=== PATIENT | female | born 1985 | race Caucasian/White ===

== ENCOUNTER → 2016-06-12 | Outpatient (REF) | payer OTHER | LOC: M LAB REF 12:33 | PROVIDERS: ATTEND Physician Assistant | DX: J02.9 Acute pharyngitis, unspecified (principal) ==

== ENCOUNTER → 2016-08-20 | Outpatient (CLI) | payer OTHER ==
[2016-08-20 10:13] LABS: MEAN CORPUSCULAR HEMOGLOBIN 29.9 pg (27.0-33.0); MEAN CORPUSCULAR HGB CONC 33.2 g/dl (32.0-36.5); MEAN CORPUSCULAR VOLUME 89.9 fl (80.0-96.0); RED CELL DISTRIBUTION WIDTH 12.9 % (11.5-14.5); WHITE BLOOD COUNT 6.8 K/mm3 (4.0-10.0)
[2016-08-20 10:34] LABS: ALBUMIN 3.7 GM/DL (3.2-5.2); ALBUMIN/GLOBULIN RATIO 1.03 (1.00-1.93); ALKALINE PHOSPHATASE 71 U/L (45-117); ALT/SGPT 28 U/L (12-78); ANION GAP 6 MEQ/L (8-16); AST/SGOT 15 U/L (15-37); BILIRUBIN,TOTAL 0.6 MG/DL (0.2-1.0); BLOOD UREA NITROGEN 12 MG/DL (7-18); CALCIUM LEVEL 8.7 MG/DL (8.5-10.1); CARBON DIOXIDE LEVEL 28 MEQ/L (21-32); CHLORIDE LEVEL 108 MEQ/L (98-107); CHOLESTEROL LEVEL 235 MG/DL (<200); CREATININE FOR GFR 0.71 MG/DL (0.55-1.02); GLOMERULAR FILTRATION RATE > 60.0 (>60); GLUCOSE, FASTING 91 MG/DL (70-105); SODIUM LEVEL 142 MEQ/L (136-145); TOTAL PROTEIN 7.3 GM/DL (6.4-8.2); TRIGLYCERIDES LEVEL 110 MG/DL (<150)
== END ==
LOC: M WUC 08:14
PROVIDERS: ATTEND Family Medicine
DX: Z00.00 Encounter for general adult medical examination without abnormal findings (principal)

== ENCOUNTER → 2016-11-07 | Outpatient (CLI) | payer BC, OTHER ==
--- NOTE | 2016-11-10 10:24 | SLEEPCENT ---
DATE OF PROCEDURE: 11/07/2016 ORDERED BY: ANA PALUA Eastman Nocturnal polysomnography was performed for evaluation of sleep physiology in this patient with a history of excessive somnolence, nonrestorative sleep apnea, comorbidities of migraine cephalgia. 7 hours and 40 minutes of data were reviewed. Of these, 415 minutes of sleep were identified. Sleep latency was prolonged at 21 minutes. Rapid eye movement (REM) was prolonged at 104 minutes. Sleep architecture was fairly good with 3 REM periods. Overall sleep efficiency was 94%. The patient's EKG showed a sinus rhythm with an average heart rate of 70 beats per minute. EEG showed reasonably normal waveforms for awake and sleep stages. There were no focal events. There were 42 respiratory events identified of 10 seconds in duration or greater for an apnea hypopnea index of 6.1. The events were not exclusive to sleep stage but were seen only in the supine posture. Arousals from respiratory events occurred only 1.9 times per hour. Some oxygen desaturations were seen into the upper 80s. Limb activity was seen throughout the study. There were 3 trains of 30 events and limb movement arousal index was 9.7. Remaining measures of sleep physiology were normal. IMPRESSION: 1. Mild positional obstructive sleep apnea syndrome (G47.33). Apnea hypopnea index 6.1. 2. Periodic limb movement disorder (G47.61). Limb movement arousal index 9.7. RECOMMENDATION: Sleep position retraining for avoidance of the supine posture may be sufficient to address the patient's respiratory events. If sleep symptoms persist despite sleep position retraining, return to the sleep disorder center for pressure therapy would be indicated. Limb activity appears disruptive and interventions to reduce the frequency arousal from limb activity may also be helpful.
== END ==
LOC: M SLEEP 20:00
PROVIDERS: ATTEND Nurse Practitioner Adult Health
DX: G47.33 Obstructive sleep apnea (adult) (pediatric) (principal); G47.61 Periodic limb movement disorder

== ENCOUNTER → 2017-11-11 | Outpatient (CLI) | payer BC, OTHER | LOC: M WUC 14:19 | DX: R05 Cough (principal) | CPT/HCPCS: 71046 ==

== ENCOUNTER → 2020-10-24 | Outpatient (REF) | payer BC, OTHER ==
[2020-10-24 18:39] LABS: FREE T4 0.95 NG/DL (0.76-1.46); THYROID STIMULATING HORMONE 0.849 uIU/ML (0.358-3.740)
[2020-10-24 18:43] LABS: FOLLICLE STIMULATING HORMONE 4.6 mIU/mL
== END ==
LOC: M LAB REF 17:06
PROVIDERS: ATTEND Obstetrics & Gynecology
DX: N92.1 Excessive and frequent menstruation with irregular cycle (principal)

== ENCOUNTER → 2020-12-20 | Outpatient (CLI) | payer BC, OTHER ==
[~2020-12-20] MED LIST: PHEN-239 PO; ZYRTTAB8 PO
== END ==
LOC: M LABSMTC 09:27
PROVIDERS: ATTEND Anesthesiology
DX: Z01.812 Encounter for preprocedural laboratory examination (principal); Z20.822 Contact with and (suspected) exposure to COVID-19

== ENCOUNTER 2020-12-25 07:30 | Day surgery (SDC) | payer BC, OTHER ==
[~2020-12-25] VITALS: Ht 170.2 cm; Wt 97.3 kg
[~2020-12-25 07:30] MED LIST changes: +LIDOCAINE 1% MDV 20ML VIAL SQ PRN; +LR 1,000 ML IV ONE
--- OUTSIDE RECORDS SUMMARY | 2020-12-25 07:33 | CCD | Continuity of Care Document ---
Author Author Anais HORNE Organization Unknown [place] [address] Phone [phone] Care Team Providers Care Carousel Operator Name Role Phone June Cantor D.O. AUTM [facility] - [facility] AUTM [phone] Dante Lutz MD AUTM [phone] Problems Active Problems Provider Date Allergic rhinitis ANA PAULA Diggs Onset: 10/06/2019 Social History Type Date Description Comments Sex Unknown ETOH Use Occasionally consumes alcohol Recreational Drug Use Denies Drug Use Tobacco Use Start: Unknown End: Unknown Patient is a former smoker Smoking Status Reviewed: 10/06/19 Patient is a former smoker Exercise Type/Frequency Exercises regularly Sun Exposure Uses sunscreen Seat Belt/Car Seat Always uses seat belt Allergies, Adverse Reactions, Alerts Active Allergies Criticality Reaction | Severity Comments Date Cefotaxime Unable to assess criticality 10/03/2019 Morphine Unable to assess criticality 10/03/2019 Medications Active Medications SIG Qnty Indications Ordering Provide r Date Zyrtec Allergy 10mg Tablets 1 by mouth every night 90tabs J30.9 June Cantor D.O. 08/13 Flonase Allergy Relief 50mcg/Act Suspension two sprays in each nostril once daily 18.200ml J30.9 June Cantor D.O. 08/13/2020 Plexion Cleanser 9.8-4.8% Liquid apply to face, neck and chest once a day to affected area of acne 855gm L71 .8 June Cantor D.O. 06/12/2020 Phentermine HCL 37.5mg Capsules take one capsule by mouth daily before first meal of day 30caps E66.9 June Flores D.O. 06/12/[address] 1 by mouth every day 90caps Eva TrimbleO. 02/01 Multivitamin Adult Tablets 1 by mouth every day Unknown Immunizations Description No Information Available Vital Signs Date Vital Result Comment 11/15/2020 2:01pm BP Systolic 126 mmHg BP Diastolic 76 mmHg Height 68 inches 5'8" Weight 219.00 lb BMI (Body Mass Index) 33.3 kg/m2 Heart Rate 98 /min Respiratory Rate 18 /min Body Temperature 97.8 F O2 % BldC Oximetry 97 % [place] Body Weight 140 lb 10/17/2020 11:15am BP Systolic 132 mmHg BP Diastolic 82 mmHg Height 68 inches 5'8" Weight 223.00 lb BMI (Body Mass Index) 33.9 kg/m2 Heart Rate 97 /min Respiratory Rate 18 /min Body Temperature 98.3 F O2 % BldC Oximetry 98 % [place] Body Weight 140 lb Results Description No Information Available Procedures Date Code Description Status 10/17/2020 26273 Office/Outpatient Established Lo w MDM 20-29 Min Completed 08/13/2020 99584 Preventive Visit Est 18-39 Yrs C ompleted 06/12/2020 85276 Office/Outpatient Established Lo w MDM 20-29 Min Completed Medical Devices Description No Information Available Encounters Type Date Location Provider Dx Diagnosis Office Visit 10/17/2020 11:20a Family Medicine [facility] ANA PAULA Tang E66.9 Obesity, unspecified J30.9 Allergic rhinitis, unspecifi ed K21.9 Gastro-esophageal reflux dis ease without esophagitis Z68.33 Body mass index [BMI] 33.0-3 3.9, adult Office Visit 08/13/2020 3:30p Family [facility] ANA PAULA Tang Z00.00 Encntr for general adult med ical exam w/o abnormal findings E66.9 Obesity, unspecified J30.9 Allergic rhinitis, unspecifi ed K21.9 Gastro-esophageal reflux dis ease without esophagitis Z68.32 Body mass index [BMI] 32.0-3 2.9, adult Office Visit 06/12/2020 10:20a [facility] Medicine [facility] ANA PAULA Rodriguez L71.8 Other rosacea E66.9 Obesity, unspecified Z68.33 Body mass index [BMI] 33.0-3 3.9, adult Assessments Date Code Description Provider 11/15/2020 E66.9 Obesity, unspecified Jh tirado, PA 11/15/2020 J30.9 Allergic rhinitis, unspecified Nghia Horne, PA 11/15/2020 K21.9 Gastro-esophageal reflux disease without esophagitis ANA PAULA Rodriguez 11/15/2020 Z68.33 Body mass index [BMI] 33.0-33.9, adult ANAP AULA Rodriguez 10/17/2020 E66.9 Obesity, unspecified Jh tirado, PA 10/17/2020 J30.9 Allergic rhinitis, unspecified Nghia Horne, ANA PAULA 10/17/2020 K21.9 Gastro-esophageal reflux disease without esophagitis ANA PAULA Rodriguez 10/17/2020 Z68.33 Body mass index [BMI] 33.0-33.9, adult ANA PAULA Rodriguez 08/13/2020 Z00.00 Encounter for genera l adult medical examination without abnormal findings ANA PAULA Rodriguez 08/13/2020 E66.9 Obesity, unspecified ANA PAULA Brown 08/13/2020 J30.9 Allergic rhinitis, unspecified ANA PAULA Adkins 08/13/2020 K21.9 Gastro-esophageal reflux disease without esophagitis ANA PAULA Rodriguez 08/13/2020 Z68.32 Body mass index [BMI] 32.0-32.9, adult ANA PAULA Rodriguez 06/12/2020 L71.8 Other rosacea ANA PAULA Rodriguez 06/12/2020 E66.9 Obesity, unspecified Jh tirado, PA 06/12/2020 Z68.33 Body mass index [BMI] 33.0-33.9, adult ANA PAULA Rodriguez Plan of Treatment Future Appointment(s):* 12/18/2020 2:30 pm - ANA PAULA Rodriguez at [facility] 11/15/2020 - ANA PAULA Rodriguez* E66.9 Obesity, unspecified* Comments:* Continue with Phentermine to help * Follow up:* 1 month * J30.9 Allergic rhinitis, unspecified* Comments:* Try Flonase and Zyrtec for allergies and Zyrtec D (without use of Phentermine) to help with allergies * K21.9 Gastro-esophageal reflux disease without esophagitis* Comments:* Well controlled with Omeprazole. * Z68.33 Body mass index [BMI] 33.0-33.9, adult Functional Status Description No Information Available Mental Status Description No Information Available Referrals Refer to Reason for Referral Status Appt Date Dante Lutz MD Anais has a history of inf lamed facial tissue. She has a good facial hygiene routine but still has an excessive oily skin with occasional pimples. She would like further care with a spark plug tester. She was previously going to [place] for skin care. Sent 11/27/2020 [address] [facility] [address] [place] [address] [id number] [phone]
--- OUTSIDE RECORDS SUMMARY | 2020-12-25 07:33 | CCD | Continuity of Care Document ---
Author Author Anais HORNE Organization [place] [address] Phone [phone] Care Team Providers Care Color Dipper Name Role Phone June Cantor D.O. AUTM [phone] [facility] - Family Medicine AUTM [phone] Dante Lutz MD AUTM [phone] Problems Active Problems Provider Date Allergic rhinitis [...] F O2 % BldC Oximetry 97 % [place] Body Weight 140 lb 10/17/2020 11:15am BP Systolic 132 mmHg BP Diastolic 82 mmHg Height 68 inches 5'8" Weight 223.00 lb BMI (Body Mass Index) 33.9 kg/m2 Heart Rate 97 /min Respiratory Rate 18 /min Body Temperature 98.3 F O2 % BldC Oximetry 98 % [place] Body Weight 140 lb Results Description No Information Available Procedures Date Code Description Status 11/15/2020 86181 Office/Outpatient Established Lo w MDM 20-29 Min Completed 10/17/2020 09186 Office/Outpatient Established Lo w MDM 20-29 Min Completed 08/13/2020 26229 Preventive Visit Est 18-39 Yrs C ompleted 06/12/2020 11128 Office/Outpatient Established Lo w MDM 20-29 Min Completed Medical Devices Description No Information Available Encounters Type Date Location Provider Dx Diagnosis Office Visit 11/15/2020 2:00p [facility] ANA PAULA Rodriguez E66.9 Obesity, unspecified J30.9 Allergic rhinitis, unspecifi ed K21.9 Gastro-esophageal reflux dis ease without esophagitis Z68.33 Body mass index [BMI] 33.0-3 3.9, adult Office Visit 10/17/2020 11:20a [facility] ANA PAULA Tang E66.9 Obesity, unspecified J30.9 Allergic rhinitis, unspecifi ed K21.9 Gastro-esophageal reflux dis ease without esophagitis Z68.33 Body mass index [BMI] 33.0-3 3.9, adult Office Visit 08/13/2020 3:30p [facility] ANA PAULA Rodriguez Z00.00 Encntr for general adult med ical exam w/o abnormal findings E66.9 Obesity, unspecified J30.9 Allergic rhinitis, unspecifi ed K21.9 Gastro-esophageal reflux dis ease without esophagitis Z68.32 Body mass index [BMI] 32.0-3 2.9, adult Office Visit 06/12/2020 10:20a [facility] ANA PAULA Rodriguez L71.8 Other rosacea E66.9 Obesity, unspecified Z68.33 Body mass index [BMI] 33.0-3 3.9, adult Assessments Date Code Description Provider 11/15/2020 E66.9 Obesity, unspecified Jh tirado, PA 11/15/2020 J30.9 Allergic rhinitis, unspecified Nghia Horne, PA 11/15/2020 K21.9 Gastro-esophageal reflux disease without esophagitis ANA PAULA Rodriguez 11/15/2020 Z68.33 Body mass index [BMI] 33.0-33.9, adult ANA PAULA Rodriguez 10/17/2020 E66.9 Obesity, unspecified Jh tirado, PA 10/17/2020 J30.9 Allergic rhinitis, unspecified Nghia Horne, PA 10/17/2020 K21.9 Gastro-esophageal reflux disease without esophagitis ANA PAULA Rodriguez 10/17/2020 Z68.33 Body mass index [BMI] 33.0-33.9, adult ANA PAULA Rodriguez 08/13/2020 Z00.00 Encounter for genera l adult medical examination without abnormal findings ANA PAULA Rodriguez 08/13/2020 E66.9 Obesity, unspecified Jh tirado, PA 08/13/2020 J30.9 Allergic rhinitis, unspecified Nghia Horne, PA 08/13/2020 K21.9 Gastro-esophageal reflux disease without esophagitis ANA PAULA Rodriguez 08/13/2020 Z68.32 Body mass index [BMI] 32.0-32.9, adult ANA PAULA Rodriguez 06/12/2020 L71.8 Other rosacea ANA PAULA Rodriguez 06/12/2020 E66.9 Obesity, unspecified ANA PAULA Brown 06/12/2020 Z68.33 Body mass index [BMI] 33.0-33.9, adult ANA PAULA Rodriguez Plan of Treatment Future Appointment(s):* 12/18/2020 2:30 pm - ANA PAULA Rodriguez at [facility] Functional Status Description No Information Available Mental Status Description No Information Available Referrals Refer to Dr Reason for Referral Status Appt Date 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 She has a good facial hygiene routine but still has an excessive oily skin with occasional pimples. She would like further care with a correctional treatment specialist. She was previously going to [place] for skin care. Sent 11/27/2020 [address] [facility] [address] [place] [address] [phone]
--- OUTSIDE RECORDS SUMMARY | 2020-12-25 07:33 | CCD | Continuity of Care Document ---
Author Author Anais JESUS SC Organization Unknown Address [address] [place] [address] Phone [phone] Care Team Providers Care Tax Record Clerk Name Role Phone Oscar Brown MD AUTM [phone] Problems Active Problems Provider Date Dehydration Tan Sims PKennedy Onset: 04/30/2011 Acute sinusitis Erlin Mann Onset: 2 Social History Type Date Description Comments Sex Unknown ETOH Use Rarely consumes alcohol Tobacco Use Start: Unknown End: Unknown Patient is a former smoker quit '03 hx: 1y Allergies, Adverse Reactions, Alerts Active Allergies Criticality Reaction | Severity Comments Date Cefotaxime Unable to assess criticality RASH 12/15/2010 Inactive Allergies NKDA Unable to assess criticality 11/02/2007 Medications Active Medications SIG Qnty Indications Ordering Provide r Date Proair HFA 108(90Base) mcg/Act Aer osol 2 puff every 4 hours as needed sob/wheezing 1units J20.9 Barron Kilgore JR., M.D. 11/02/2017 Zyrtec 10mg Tablets 1 po qd 30tabs Unknown Zantac 150mg Tablets every ni ght Unknown Mvi Unknown Immunizations Description No Information Available Vital Signs Date Vital Result Comment 08/11/2018 3:37pm BP Systolic 130 mmHg BP Diastolic 85 mmHg Heart Rate 78 /min Respiratory Rate 22 /min O2 % BldC Oximetry 99 % Body Temperature 97.9 F Weight 200.00 lb Height 67 inches 5'7" BMI (Body Mass Index) 31.3 kg/m2 Pain Level 3 02/21/2018 10:30am BP Systolic 128 mmHg BP Diastolic 93 mmHg Heart Rate 81 /min O2 % BldC Oximetry 97 % Body Temperature 97.4 F Weight 220.00 lb Height 67 inches 5'7" BMI (Body Mass Index) 34.5 kg/m2 Pain Level 4 Results Description No Information Available Procedures Description No Information Available Medical Devices Description No Information Available Encounters Description No Information Available Assessments Date Code Description Provider 10/29/2020 Z20.828 Contact with and (barroso spected) exposure to other viral communicable diseases ANA PAULA Torrez Plan of Treatment No Information Available Functional Status Description No Information Available Mental Status Description No Information Available Referrals Description No Information Available
--- OUTSIDE RECORDS SUMMARY | 2020-12-25 07:34 | CCD | Continuity of Care Document ---
Author Author Anais JESUS MT Organization Unknown Address [address] [place] [id number] Phone [phone] Care Team Providers Care Monotype Keyboard Operator Name Role Phone Oscar Brown MD AUTM [phone] Problems Active Problems Provider Date Dehydration Tan [...]
--- OUTSIDE RECORDS SUMMARY | 2020-12-25 07:34 | CCD ---
Author Author [facility] Organization [facility] Address Unknown Phone Unavailable Care Team Providers Care Legal Executive Assistant Name Role Phone MARY-JOAQUÍN, AMANDA DO Unavailable Unavailable MARY-JOAQUÍN, AMANDA DO Unavailable Unavailable MARY-JOAQUÍN, AMANDA DO Unavailable Unavailable MARY-JOAQUÍN, AMANDA DO Unavailable Unavailable MARY-JOAQUÍN, AMANDA DO Unavailable Unavailable MARY-JOAQUÍN, AMANDA DO Unavailable Unavailable MARY-JOAQUÍN, AMANDA DO Unavailable Unavailable MARY-JOAQUÍN, AMANDA DO Unavailable Unavailable MARY-JOAQUÍN, AMANDA DO Unavailable Unavailable MARY-JOAQUÍN, AMANDA DO Unavailable Unavailable MARY-JOAQUÍN, AMANDA DO Unavailable Unavailable MARY-JOAQUÍN, AMANDA DO Unavailable Unavailable MARY-JOAQUÍN, AMANDA DO Unavailable Unavailable MARY-JOAQUÍN, AMANDA DO Unavailable Unavailable MARY-JOAQUÍN, AMANDA DO Unavailable Unavailable MARY-JOAQUÍN, AMANDA DO Unavailable Unavailable MARY-JOAQUÍN, AMANDA DO Unavailable Unavailable MARY-JOAQUÍN, AMANDA DO Unavailable Unavailable MARY-JOAQUÍN, AMANDA DO Unavailable Unavailable MARY-JOAQUÍN, AMANDA DO Unavailable Unavailable MARY-JOAQUÍN, AMANDA DO Unavailable Unavailable MARY-JOAQUÍN, AMANDA DO Unavailable Unavailable MARY-JOAQUÍN, AMANDA DO Unavailable Unavailable MARY-JOAQUÍN, AMANDA DO Unavailable Unavailable MARY-JOAQUÍN, AMANDA DO Unavailable Unavailable MARY-JOAQUÍN, AMANDA DO Unavailable Unavailable MARY-JOAQUÍN, AMANDA DO Unavailable Unavailable MARY-JOAQUÍN, AMANDA DO Unavailable Unavailable MARY-JOAQUÍN, AMANDA DO Unavailable Unavailable MARY-JOAQUÍN, AMANDA DO Unavailable Unavailable MARY-JOAQUÍN, AMANDA DO Unavailable Unavailable MARY-JOAQUÍN, AMANDA DO Unavailable Unavailable MARY-JOAQUÍN, AMANDA DO Unavailable Unavailable MARY-JOAQUÍN, AMANDA DO Unavailable Unavailable MARY-JOAQUÍN, AMANDA DO Unavailable Unavailable MARY-JOAQUÍN, AMANDA DO Unavailable Unavailable MARY-JOAQUÍN, AMANDA DO Unavailable Unavailable MARY-JOAQUÍN, AMANDA DO Unavailable Unavailable MARY-JOAQUÍN, AMANDA DO Unavailable Unavailable MARY-JOAQUÍN, AMANDA DO Unavailable Unavailable MARY-JOAQUÍN, AMANDA DO Unavailable Unavailable MARY-JOAQUÍN, AMANDA DO Unavailable Unavailable MARY-JOAQUÍN, AMANDA DO Unavailable Unavailable MARY-JOAQUÍN, AMANDA DO Unavailable Unavailable MARY-JOAQUÍN, AMANDA DO Unavailable Unavailable MARY-JOAQUÍN, AMANDA DO Unavailable Unavailable MARY-JOAQUÍN, AMANDA DO Unavailable Unavailable MARY-JOAQUÍN, AMANDA DO Unavailable Unavailable MARY-JOAQUÍN, AMANDA DO Unavailable Unavailable MARY-JOAQUÍN, AMANDA DO Unavailable Unavailable MARY-JOAQUÍN, AMANDA DO Unavailable Unavailable MARY-JOAQUÍN, AMANDA DO Unavailable Unavailable MARY-JOAQUÍN, AMANDA DO Unavailable Unavailable MARY-JOAQUÍN, AMANDA DO Unavailable Unavailable MARY-JOAQUÍN, AMANDA DO Unavailable Unavailable MARY-JOAQUÍN, AMANDA DO Unavailable Unavailable MARY-JOAQUÍN, AMANDA DO Unavailable Unavailable MARY-JOAQUÍN, AMANDA DO Unavailable Unavailable MARY-JOAQUÍN, AMANDA DO Unavailable Unavailable MARY-JOAQUÍN, AMANDA DO Unavailable Unavailable MARY-JOAQUÍN, AMANDA DO Unavailable Unavailable MARY-JOAQUÍN, AMANDA DO Unavailable Unavailable MARY-JOAQUÍN, AMANDA DO Unavailable Unavailable MARY-JOAQUÍN, AMANDA DO Unavailable Unavailable MARY-JOAQUÍN, AMANDA DO Unavailable Unavailable MARY-JOAQUÍN, AMANDA DO Unavailable Unavailable MARY-JOAQUÍN, AMANDA DO Unavailable Unavailable MARY-JOAQUÍN, AMANDA DO Unavailable Unavailable MARY-JOAQUÍN, AMANDA DO Unavailable Unavailable MARY-JOAQUÍN, AMANDA DO Unavailable Unavailable MARY-JOAQUÍN, AMANDA DO Unavailable Unavailable MARY-JOAQUÍN, AMANDA DO Unavailable Unavailable MARY-JOAQUÍN, AMANDA DO Unavailable Unavailable MARY-JOAQUÍN, AMANDA DO Unavailable Unavailable MARY-JOAQUÍN, AMANDA DO Unavailable Unavailable MARY-JOAQUÍN, AMANDA DO Unavailable Unavailable MARY-JOAQUÍN, AMANDA DO Unavailable Unavailable MARY-JOAQUÍN, AMANDA DO Unavailable Unavailable MARY-JOAQUÍN, AMANDA DO Unavailable Unavailable MARY-JOAQUÍN, AMANDA DO Unavailable Unavailable MARY-JOAQUÍN, AMANDA DO Unavailable Unavailable MARY-JOAQUÍN, AMANDA DO Unavailable Unavailable MARY-JOAQUÍN, AMANDA DO Unavailable Unavailable MARY-JOAQUÍN, AMANDA DO Unavailable Unavailable Lucia, Clive PA Unavailable Unavailable Lucia, Clive PA Unavailable Unavailable Lucia, Clive PA Unavailable Unavailable Lucia, Clive PA Unavailable Unavailable Lucia, Clive PA Unavailable Unavailable Lucia, Clive PA Unavailable Unavailable Lucia, Clive PA Unavailable Unavailable Lucia, Clive PA Unavailable Unavailable Lucia, Clive PA Unavailable Unavailable Lucia, Clive PA Unavailable Unavailable Lucia, Clive PA Unavailable Unavailable Lucia, Clive PA Unavailable Unavailable Lucia, Clive PA Unavailable Unavailable Lucia, Clive PA Unavailable Unavailable Lucia, Clive PA Unavailable Unavailable Lucia, Clive PA Unavailable Unavailable Lucia, Clive PA Unavailable Unavailable Lucia, Clive PA Unavailable Unavailable Lucia, Clive PA Unavailable Unavailable Lucia, Clive PA Unavailable Unavailable Lucia, Clive PA Unavailable Unavailable Lucia, Clive PA Unavailable Unavailable Lucia, Clive PA Unavailable Unavailable Lucia, Clive PA Unavailable Unavailable Lucia, Clive PA Unavailable Unavailable Lucia, Clive PA Unavailable Unavailable Lucia, Clive PA Unavailable Unavailable Lucia, Clive PA Unavailable Unavailable Lucia, Clive PA Unavailable Unavailable Lucia, Clive PA Unavailable Unavailable Lucia, Clive PA Unavailable Unavailable Lucia, Clive PA Unavailable Unavailable Lucia, Clive PA Unavailable Unavailable Lucia, Clive PA Unavailable Unavailable Lucia, Clive PA Unavailable Unavailable Lucia, Clive PA Unavailable Unavailable Lucia, Clive PA Unavailable Unavailable Lucia, Clive PA Unavailable Unavailable Lucia, Clive PA Unavailable Unavailable Lucia, Clive PA Unavailable Unavailable Lucia, Clive PA Unavailable Unavailable Lucia, Clive PA Unavailable Unavailable Lucia, Clive PA Unavailable Unavailable Lucia, Clive PA Unavailable Unavailable Lucia, Clive PA Unavailable Unavailable Lucia, Clive PA Unavailable Unavailable Lucia, Clive PA Unavailable Unavailable Lucia, Clive PA Unavailable Unavailable Lucia, Clive PA Unavailable Unavailable Lucia, Clive PA Unavailable Unavailable Lucia, Clive PA Unavailable Unavailable Lucia, Clive PA Unavailable Unavailable Lucia, Clive PA Unavailable Unavailable Lucia, Clive PA Unavailable Unavailable O'yeni, A Jh PA Unavailable Unavailable O'yeni, A Jh PA Unavailable Unavailable O'yeni, A Jh PA Unavailable Unavailable O'yeni, A Jh PA Unavailable Unavailable O'yeni, A Jh PA Unavailable Unavailable O'yeni, A Jh PA Unavailable Unavailable O'yeni, A Jh PA Unavailable Unavailable O'yeni, A Jh PA Unavailable Unavailable O'yeni, A Jh PA Unavailable Unavailable O'yeni, A Jh PA Unavailable Unavailable O'yeni, A Jh PA Unavailable Unavailable O'yeni, A Jh PA Unavailable Unavailable O'yeni, A Jh PA Unavailable Unavailable O'yeni, A Jh PA Unavailable Unavailable O'yeni, A Jh PA Unavailable Unavailable O'yeni, A Jh PA Unavailable Unavailable O'yeni, A Jh PA Unavailable Unavailable O'yeni, A Jh PA Unavailable Unavailable O'yeni, A Jh PA Unavailable Unavailable O'yeni, A Jh PA Unavailable Unavailable O'yeni, A Jh PA Unavailable Unavailable O'yeni, A Jh PA Unavailable Unavailable O'yeni, A Jh PA Unavailable Unavailable O'yeni, A Jh PA Unavailable Unavailable O'yeni, A Jh PA Unavailable Unavailable O'yeni, A Jh PA Unavailable Unavailable O'yeni, A Jh PA Unavailable Unavailable O'yeni, A Jh PA Unavailable Unavailable O'yeni, A Jh PA Unavailable Unavailable O'yeni, A Jh PA Unavailable Unavailable O'yeni, Emelyn Peñaloza PA Unavailable Unavailable O'yeni, A Jh PA Unavailable Unavailable O'yeni, Emelyn Peñaloza PA Unavailable Unavailable Re-disclosure Warning The records that you are about to access may contain information from federally-assisted alcohol or drug abuse programs. If such information is present, then the following federally mandated warning applies: This information has been disclosed to you from records protected by federal confidentiality rules (42 CFR part 2). The federal rules prohibit you from making any further disclosure of this information unless further disclosure is expressly permitted by the written consent of the person to whom it pertains or as otherwise permitted by 42 CFR part 2. A general authorization for the release of medical or other information is NOT sufficient for this purpose. The Federal rules restrict any use of the information to criminally investigate or prosecute any alcohol or drug abuse patient.The records that you are about to access may contain highly sensitive health information, the redisclosure of which is protected by Article 27-F of the [facility] Public Health law. If you continue you may have access to information: Regarding HIV / AIDS; Provided by facilities licensed or operated by the [facility] Office of Mental Health; or Provided by the [facility] Office for People With Developmental Disabilities. If such information is present, then the following [facility] mandated warning applies: This information has been disclosed to you from confidential records which are protected by state law. State law prohibits you from making any further disclosure of this information without the specific written consent of the person to whom it pertains, or as otherwise permitted by law. Any unauthorized further disclosure in violation of state law may result in a fine or group home sentence or both. A general authorization for the release of medical or other information is NOT sufficient authorization for further disc losure. Family History Family Member Name Family Member Gender Family Member Status Date o f Status Description Data Source(s) Unknown Unknown Problem [facility] ([facility]) mother,father Unknown Male Problem [facility] ([facility] Unknown Unknown Problem [facility] ([facility] ) Unknown Unknown Encounters Encounter Providers Location Date Indications Data Source(s ) Outpatient Attender: Jh [facility] 11/15/2020 02:00:00 PM EDT [facility] ([facility]) Outpatient Attender: Jh GOSS [facility] 10/17/2020 11:20:00 AM EDT [facility] ([facility]) Outpatient Attender: Jh GOSS [facility] 08/13/2020 03:30:00 PM EDT [facility] ([facility]) Outpatient Attender: Jh GOSS [facility] 06/12/2020 10:20:00 AM EDT [facility] ([facility]) Outpatient Attender: AMANDA SMITH DO [facility] 02/02/2020 12:40:00 PM EST [facility] ([facility]) Outpatient Attender: Clive GOSS [facility] 11/03/2019 09:20:00 AM EDT [facility] ([facility]) Medications Medication Brand Name Start Date Product Form Dose Route Admi nistrative Instructions Pharmacy Instructions Status Indications Reaction Description Data Source(s) cetirizine hydrochloride 10 MG Oral Tablet [Zyrtec] Zyrtec A llergy 08/13/2020 12:00:00 AM EDT ORAL active M EDENT ([facility]) Flonase Allergy Relief Flonase Allergy Relief 08/13/2020 12:00:00 AM E DT active MED[facility] ([facility]) Phentermine Hydrochloride 37.5 MG Oral Capsule Phentermine H CL 06/12/2020 12:00:00 AM EDT ORAL active M EDENT ([facility]) Sulfacetamide Sodium 98 MG/ML / Sulfur 48 MG/ML Medica shira Liquid Soap [Plexion] Plexion Cleanser 06/12/2020 12:00:00 AM EDT active MED[facility] ([facility]) Omeprazole 20 MG Delayed Release Oral Capsule Omeprazole 02/02/2020 12:00:00 AM EST ORAL active [facility] ([facility]) POLYETHYLENE GLYCOL 3350 142 MG/ML Oral Solution [Miralax] M iralax 02/02/2020 12:00:00 AM EST active M EDENT ([facility]) Insurance Providers Payer name Policy type / Coverage type Policy ID Covered green party ID Covered green party's relationship to gasca Policy [place] Plan Information [facility] [id number] SP [id number] BCBS EMPIRE MAR DIV [id number] SP [id number] [employer] [id number] SP [id number] [facility] Commercial [id number] [facility] O [id number] S [id number] BCBS EMPIRE MAR DIV B [id number] S [id number] [facility] [employer] [id number] [facility] Commercial [id number] [place] [employer] Health Maintenance Organization (O) [id number] Self [id number] [employer] [id number] SP [id number] BCBS EMPIRE MAR DIV [id number] SP [id number] [facility] [id number] BCBS EMPIRE MAR DIV [id number] [facility] Health Maintenance Organization (HMO) [id number] Self [id number] [facility] [employer] [id number] [facility] [employer] [id number] [facility] [employer] [id number] EMPIRE ([facility]) O [id number] P [id number] [facility] Commercial [id number] [facility] O [id number] S [id number] [facility] Health Maintenance Organization (HMO) [id number] [facility] Commercial [id number] Self [id number] [facility] [employer] [id number] Problems, Conditions, and Diagnoses No Information Surgeries/Procedures Procedure Description Date Indications Data Source(s) OFFICE OUTPATIENT VISIT 15 MINUTES 11/15/2020 12:00:00 AM [facility] OFF[facility] OUTPATIENT VISIT 15 MINUTES 10/17/2020 12:00:00 AM EDT [facility] PERIODIC PREVENTIVE MED EST PATIENT 18-39 YRS 08/14/19 12:00:00 AM EDT [facility] OFFICE OUTPATIENT VISIT 15 MINUTES 06/12/2020 12:00:00 AM EDT [facility] Results ID Date Data Source [id number] 12/13/2020 08:28:00 PM EDT [facility] Name Value Range Interpretation Code Description Data Judy rce(s) Supporting Document(s) SARS coronavirus 2 RNA [Presence] in Res piratory specimen by MARCELLA with probe detection Not detected [facility] This lab was ordered by [facility] and re ported by [facility]. ID Date Data Source [id number] 12/13/2020 01:28:00 PM EDT [facility] Name Value Range Interpretation Code Description Data Judy rce(s) Supporting Document(s) SARS-COV-2 RNA RESP QL MARCELLA+PROBE Not detected [facility] This lab was ordered by [facility] Employee Cov id and reported by [facility]. ID Date Data Source [id number] 12/14/2020 03:45:00 PM EDT [facility] tics Name Value Range Interpretation Code Description Data Judy rce(s) Supporting Document(s) [id number] NOT DETECTED [email or web address] A Not Detected (negative) test result fo r this testmeans that SARS- CoV-2 RNA was not present in the specimenabove the limit of detection. A negative result does notrule out the possibility of COVID-19 and should not beused as the sole basis for treatment or patient managementdecisions. If COVID-19 is still suspected, based onexposure history together with other clinical findings,re- testing should be considered [facility]. Laboratory test results shouldalways be considered in the context of clinicalobservations and epidemiological data in making a finaldiagnosis and patient management decisions.Specimens that are self-collected were not tested withan internal control to confirm that the specimen wasproperly collected. As such, unobserved self-collectedspecimens from SARS-CoV-2 positive individuals may yieldnegative results if the specimen was not collected properly.Please review the "Fact Sheets" and FDA authorizedlabeling available for health care pr oviders andpatients using the following websites:[employer].Fashinating/home/Covid-19/HCP/sj-rizp-vmpo-blzjn8DecltHwapviyx [employer] ([employer]).Fashinating/home/Covid-19/Patients/kc-fdzk-xszt-zccmg1Jgmc test has been authorized by the FDA under anEmergency Use Authorization (EUA) for use by authorizedlaboratories.Methodology: Nucleic Acid Amplification Test (NAAT)includes RT-PCR or TMA ID Date Data Source [id number] 11/18/2020 03:45:00 PM EDT [facility] Name Value Range Interpretation Code Description Data Judy rce(s) Supporting Document(s) SARS-CoV-2 RNA Resp Ql MARCELLA+probe DETECTED [facility] This lab was ordered by SEVERINO canas and reported by SEVERINO Etienne. ID Date Data Source [id number] 10/29/2020 12:00:00 AM EDT [facility] Name Value Range Interpretation Code Description Data Judy rce(s) Supporting Document(s) SARS-CoV2 Rapid Antigen Negative [facility] This lab was reported by Ghazala Monreal. Procedure Social History No Information Vital Signs ID Date Data Source UNK Name Value Range Interpretation Code Description Data Source(s) Systolic blood pressure 126 mm[Hg] 126 mm[Hg] M [facility] ([facility]) Respiratory rate 18 /min 18 /min [facility] ( [facility]) Heart rate 98 /min 98 /min [facility] ([facility]) Body temperature 97.8 [degF] 97.8 [degF] [facility] ([facility]) Oxygen saturation in Arterial blood by Pulse oximetry 97 % 97 % [facility] ([facility]) [place] body weight 140 [lb_av] 140 [lb_av] MEDEN T ([facility]) Diastolic blood pressure 76 mm[Hg] 76 mm[Hg] [facility] ([facility]) Body height 68 [in_i] 68 [in_i] [facility] ([facility]) 5'8" Body weight 219.00 [lb_av] 219.00 [lb_av] MEDEN T ([facility]) Body mass index (BMI) [Ratio] 33.3 kg/m2 33.3 k g/m2 [facility] ([facility]) Diastolic blood pressure 82 mm[Hg] 82 mm[Hg] [facility] ([facility]) Systolic blood pressure 132 mm[Hg] 132 mm[Hg] M EDENT ([facility]) Heart rate 97 /min 97 /min [facility] ([facility]) Body height 68 [in_i] 68 [in_i] [facility] ([facility]) 5'8" Body weight 223.00 [lb_av] 223.00 [lb_av] MEDEN T ([facility]) Body mass index (BMI) [Ratio] 33.9 kg/m2 33.9 k g/m2 [facility] ([facility]) Respiratory rate 18 /min 18 /min [facility] ( [facility]) Body temperature 98.3 [degF] 98.3 [degF] [facility] ([facility]) Oxygen saturation in Arterial blood by Pulse oximetry 98 % 98 % [facility] ([facility]) [place] body weight 140 [lb_av] 140 [lb_av] MEDEN T ([facility]) Systolic blood pressure 126 mm[Hg] 126 mm[Hg] M EDENT ([facility]) Diastolic blood pressure 80 mm[Hg] 80 mm[Hg] [facility] ([facility]) Body height 68 [in_i] 68 [in_i] [facility] ([facility]) 5'8" Body weight 214.50 [lb_av] 214.50 [lb_av] MEDEN T ([facility]) Body mass index (BMI) [Ratio] 32.6 kg/m2 32.6 k g/m2 [facility] ([facility]) Heart rate 104 /min 104 /min [facility] ([facility]) Respiratory rate 18 /min 18 /min [facility] ( [facility]) Body temperature 98.5 [degF] 98.5 [degF] [facility] ([facility]) Oxygen saturation in Arterial blood by Pulse oximetry 98 % 98 % [facility] ([facility]) [place] body weight 140 [lb_av] 140 [lb_av] MEDEN T ([facility]) Systolic blood pressure 128 mm[Hg] 128 mm[Hg] M EDENT ([facility]) Diastolic blood pressure 76 mm[Hg] 76 mm[Hg] [facility] ([facility]) Body height 68 [in_i] 68 [in_i] [facility] ([facility]) 5'8" Body weight 220.12 [lb_av] 220.12 [lb_av] MEDEN T ([facility]) Body mass index (BMI) [Ratio] 33.5 kg/m2 33.5 k g/m2 [facility] ([facility]) Heart rate 88 /min 88 /min [facility] ([facility]) Respiratory rate 18 /min 18 /min [facility] ( [facility]) Body temperature 98.4 [degF] 98.4 [degF] [facility] ([facility]) Oxygen saturation in Arterial blood by Pulse oximetry 98 % 98 % [facility] ([facility]) [place] body weight 140 [lb_av] 140 [lb_av] MEDEN T ([facility]) Body temperature 98.4 [degF] 98.4 [degF] [facility] ([facility]) Oxygen saturation in Arterial blood by Pulse oximetry 97 % 97 % [facility] ([facility]) Systolic blood pressure 120 mm[Hg] 120 mm[Hg] M EDENT ([facility]) Diastolic blood pressure 78 mm[Hg] 78 mm[Hg] [facility] ([facility]) Body height 68 [in_i] 68 [in_i] [facility] ([facility]) 5'8" Body mass index (BMI) [Ratio] 31.8 kg/m2 31.8 k g/m2 [facility] ([facility]) [place] body weight 140 [lb_av] 140 [lb_av] MEDEN T ([facility]) Body weight 209.25 [lb_av] 209.25 [lb_av] MEDEN T ([facility]) Respiratory rate 18 /min 18 /min [facility] ( [facility]) Heart rate 94 /min 94 /min [facility] ([facility]) Systolic blood pressure 112 mm[Hg] 112 mm[Hg] M EDENT ([facility]) Diastolic blood pressure 80 mm[Hg] 80 mm[Hg] [facility] ([facility]) Body height 68 [in_i] 68 [in_i] [facility] ([facility]) 5'8" Body weight 215.00 [lb_av] 215.00 [lb_av] MEDEN T ([facility]) Body mass index (BMI) [Ratio] 32.7 kg/m2 32.7 k g/m2 [facility] ([facility]) Heart rate 81 /min 81 /min [facility] ([facility]) Respiratory rate 16 /min 16 /min [facility] ( [facility]) Body temperature 99.7 [degF] 99.7 [degF] [facility] ([facility]) Oxygen saturation in Arterial blood by Pulse oximetry 97 % 97 % [facility] ([facility]) [place] body weight 140 [lb_av] 140 [lb_av] MEDEN T ([facility])
--- OUTSIDE RECORDS SUMMARY | 2020-12-25 07:34 | CCD | Continuity of Care Document ---
Author Author Anais TORRES Organization [place] [address] Phone [phone] Care Team Providers Care Rip/Mould Operator Name Role Phone June Cantor D.O. AUTM [facility] AUTM [phone] Dante Lutz MD AUTM [phone] Problems Active Problems Provider Date Allergic rhinitis [...] Available Vital Signs Date Vital Result Comment 10/17/2020 11:15am BP Systolic 132 mmHg BP Diastolic 82 mmHg Height 68 inches 5'8" Weight 223.00 lb BMI (Body Mass Index) 33.9 kg/m2 Heart Rate 97 /min Respiratory Rate 18 /min Body Temperature 98.3 F O2 % BldC Oximetry 98 % [place] Body Weight 140 lb 08/13/2020 3:24pm BP Systolic 126 mmHg BP Diastolic 80 mmHg Height 68 inches 5'8" Weight 214.50 lb BMI (Body Mass Index) 32.6 kg/m2 Heart Rate 104 /min Respiratory Rate 18 /min Body Temperature 98.5 F O2 % BldC Oximetry 98 % [place] Body Weight 140 lb Results Description No Information Available Procedures Date Code Description Status 10/17/2020 23010 Office/Outpatient Established Lo w MDM 20-29 Min Completed 08/13/2020 23788 Preventive Visit Est 18-39 Yrs C ompleted 06/12/2020 97030 Office/Outpatient Established Lo w MDM 20-29 Min Completed Medical Devices Description No Information Available Encounters Type Date Location Provider Dx Diagnosis Office Visit 10/17/2020 11:20a Family Medicine [facility] ANA PAULA Tang E66.9 Obesity, unspecified J30.9 Allergic rhinitis, unspecifi ed K21.9 Gastro-esophageal reflux dis ease without esophagitis Z68.33 Body mass index [BMI] 33.0-3 3.9, adult Office Visit 08/13/2020 3:30p Family [facility] ANA PAULA Tang Z00.00 Encntr for general adult med ical exam w/o abnormal findings E66.9 Obesity, unspecified J30.9 Allergic rhinitis, unspecifi ed K21.9 Gastro-esophageal reflux dis ease without esophagitis Z68.32 Body mass index [BMI] 32.0-3 2.9, adult Office Visit 06/12/2020 10:20a [facility] ANA PAULA Rodriguez L71.8 Other rosacea E66.9 Obesity, unspecified Z68.33 Body mass index [BMI] 33.0-3 3.9, adult Assessments Date Code Description Provider 10/17/2020 E66.9 Obesity, unspecified ANA PAULA Brown 10/17/2020 J30.9 Allergic rhinitis, unspecified M ANA PAULA Naidu 10/17/2020 K21.9 Gastro-esophageal reflux disease without esophagitis ANA PAULA Rodriguez 10/17/2020 Z68.33 Body mass index [BMI] 33.0-33.9, adult ANA PAULA Rodriguez 08/13/2020 Z00.00 Encounter for genera l adult medical examination without abnormal findings ANA PAULA Rodriguez 08/13/2020 E66.9 Obesity, unspecified ANA PAULA Brown 08/13/2020 J30.9 Allergic rhinitis, unspecified M ANA PAULA Naidu 08/13/2020 K21.9 Gastro-esophageal reflux disease without esophagitis ANA PAULA Rodriguez 08/13/2020 Z68.32 Body mass index [BMI] 32.0-32.9, adult ANA PAULA Rodriguez 06/12/2020 L71.8 Other rosacea ANA PAULA Rodriguez 06/12/2020 E66.9 Obesity, unspecified ANA PAULA Brown 06/12/2020 Z68.33 Body mass index [BMI] 33.0-33.9, adult ANA PAULA Rodriguez Plan of Treatment Future Appointment(s):* 11/15/2020 2:00 pm - ANA PAULA Rodriguez at [facility] Functional Status Description No Information Available Mental Status Description No Information Available Referrals Refer to Reason for Referral Status Appt Date 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 She has a good facial hygiene routine but still has an excessive oily skin with occasional pimples. She would like further care with a vocational rehab consultant. She was previously going to [place] for skin care. Sent 11/27/2020 6 [facility] [address] [place] [address] [phone]
--- OUTSIDE RECORDS SUMMARY | 2020-12-25 07:34 | CCD | Continuity of Care Document ---
Author Author Anais JESUS [place] Organization Unknown Address [address] [place] [address] Phone [phone] Care Team Providers Care Hand Ii Cutter Name Role Phone Oscar Brown MD AUTM [phone] Problems Active Problems Provider Date Dehydration Tan [...]
--- OUTSIDE RECORDS SUMMARY | 2020-12-25 07:34 | CCD | Continuity of Care Document ---
Author Author Anais JESUS [place] Organization Unknown Address [address] [place] [address] Phone [phone] Care Team Providers Care Chemistry Tutor Name Role Phone Oscar Brown MD AUTM [phone] Problems Active Problems Provider Date Dehydration Tan [...]
--- OUTSIDE RECORDS SUMMARY | 2020-12-25 07:34 | CCD | Continuity of Care Document ---
Author Author Anais TORRES Organization [place] [address] Phone [phone] Care Team Providers Care Mortgage Processing Clerk Name Role Phone June Cantor D.O. AUTM [facility] AUTM [phone] Dante Ltuz MD AUTM [phone] Problems Active Problems Provider Date Allergic rhinitis [...] F O2 % BldC Oximetry 98 % [place] Body Weight 140 lb 08/13/2020 3:24pm BP Systolic 126 mmHg BP Diastolic 80 mmHg Height 68 inches 5'8" Weight 214.50 lb BMI (Body Mass Index) 32.6 kg/m2 Heart Rate 104 /min Respiratory Rate 18 /min Body Temperature 98.5 F O2 % BldC Oximetry 98 % [place] Body Weight 140 lb Results Description No Information Available Procedures Date Code Description Status 10/17/2020 81956 Office/Outpatient Established Lo w MDM 20-29 Min Completed 08/13/2020 08446 Preventive Visit Est 18-39 Yrs C ompleted 06/12/2020 99150 Office/Outpatient Established Lo w MDM 20-29 Min Completed Medical Devices Description No Information Available Encounters Type Date Location Provider Dx Diagnosis Office Visit 10/17/2020 11:20a Family Medicine [facility] ANA PAULA Tang E66.9 Obesity, unspecified J30.9 Allergic rhinitis, unspecifi ed K21.9 Gastro-esophageal reflux dis ease without esophagitis Z68.33 Body mass index [BMI] 33.0-3 3.9, adult Office Visit 08/13/2020 3:30p Family [facility] ANA PAULA Tang Z00.00 Encntr for general adult med ical exam w/o abnormal findings E66.9 Obesity, unspecified J30.9 Allergic rhinitis, unspecifi ed K21.9 Gastro-esophageal reflux dis ease without esophagitis Z68.32 Body mass index [BMI] 32.0-3 2.9, adult Office Visit 06/12/2020 10:20a [facility] ANA PAULA Rodriguez L71.8 Other rosacea E66.9 [...] 2:00 pm - ANA PAULA Rodriguez at 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 She has a good facial hygiene routine but still has an excessive oily skin with occasional pimples. She would like further care with a collections assistant. She was previously going to [place] for skin care. Sent 11/27/2020 6 [facility] [address] [place] [address] [phone]
--- OUTSIDE RECORDS SUMMARY | 2020-12-25 07:34 | CCD | Continuity of Care Document ---
Author Author Anais TORRES Organization [place] [address] Phone [phone] Care Team Providers Care Graphic Production Artist Name Role Phone June Cantor D.O. AUTM [phone] [facility] AUTM [phone] Dante Lutz MD AUTM [phone] Problems Active Problems Provider Date Allergic rhinitis [...] F O2 % BldC Oximetry 98 % [place] Body Weight 140 lb 08/13/2020 3:24pm BP Systolic 126 mmHg BP Diastolic 80 mmHg Height 68 inches 5'8" Weight 214.50 lb BMI (Body Mass Index) 32.6 kg/m2 Heart Rate 104 /min Respiratory Rate 18 /min Body Temperature 98.5 F O2 % BldC Oximetry 98 % [place] Body Weight 140 lb Results Description No Information Available Procedures Date Code Description Status 10/17/2020 17357 Office/Outpatient Established Lo w MDM 20-29 Min Completed 08/13/2020 60084 Preventive Visit Est 18-39 Yrs C ompleted 06/12/2020 63493 Office/Outpatient Established Lo w MDM 20-29 Min Completed Medical Devices Description No Information Available Encounters Type Date Location Provider Dx Diagnosis Office Visit 10/17/2020 11:20a Family Medicine [facility] ANA PAULA Tang E66.9 Obesity, unspecified J30.9 Allergic rhinitis, unspecifi ed K21.9 Gastro-esophageal reflux dis ease without esophagitis Z68.33 Body mass index [BMI] 33.0-3 3.9, adult Office Visit 08/13/2020 3:30p Family [facility] ANA PAULA Tang Z00.00 Encntr for general adult med ical exam w/o abnormal findings E66.9 Obesity, unspecified J30.9 Allergic rhinitis, unspecifi ed K21.9 Gastro-esophageal reflux dis ease without esophagitis Z68.32 Body mass index [BMI] 32.0-3 2.9, adult Office Visit 06/12/2020 10:20a [facility] ANA PAULA Rodriguez L71.8 Other rosacea E66.9 [...] 2:00 pm - ANA PAULA Rodriguez at [facility] Functional Status Description No Information Available Mental Status Description No Information Available Referrals Refer to Reason for Referral Status Appt Date 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 She has a good facial hygiene routine but still has an excessive oily skin with occasional pimples. She would like further care with a wireless internet installer. She was previously going to [place] for skin care. Sent 11/27/2020 6 [facility] [address] [place] [address] [phone]
[2020-12-25] MEDS ORDERED: OXYC1TAB23 PO (07:50)
[2020-12-25] MEDS ORDERED: CLINDAMYCIN 900 MG in IV 1 EA IV ONE (08:00)
[2020-12-25 08:07] LABS: HEMATOCRIT 42.2 % (36.0-47.0); HEMOGLOBIN 13.8 g/dl (12.0-15.5); MEAN CORPUSCULAR HEMOGLOBIN 29.3 pg (27.0-33.0); MEAN CORPUSCULAR HGB CONC 32.7 g/dl (32.0-36.5); MEAN CORPUSCULAR VOLUME 89.6 fl (80.0-96.0); PLATELET COUNT, AUTOMATED 245 10^3/uL (150-450); RED BLOOD COUNT 4.71 10^6/uL (4.00-5.40); WHITE BLOOD COUNT 6.6 10^3/uL (4.0-10.0)
[2020-12-25] MEDS ORDERED: ROCURONIUM BROMIDE 50 MG/5 ML VIAL As Ordered ONE (08:27)
[2020-12-25] MEDS ORDERED: SUGAMMADEX SODIUM 500 MG/5 ML VIAL (BRIDION) As Ordered ONE (08:27)
[2020-12-25] MEDS ORDERED: ACETAMINOPHEN 1000MG 100ML IV BTL (OFIRMEV) (J0131 PER 10MG) As Ordered ONE (08:27)
[2020-12-25] MEDS ORDERED: LIDOCAINE 2% 100MG/5ML SDV (FOR ANES.) As Ordered ONE (08:27)
[2020-12-25] MEDS ORDERED: ONDANSETRON 4MG/2ML VIAL As Ordered ONE (08:27)
[2020-12-25] MEDS ORDERED: dexameTHASONE 4 MG/ML 1ML VIAL (J1100 PER 1MG) As Ordered ONE (08:27)
[2020-12-25] MEDS ORDERED: KETOROLAC 60MG 2ML VIAL As Ordered ONE (08:27)
[2020-12-25] MEDS ORDERED: propofoL 200 MG/20 ML VIAL As Ordered ONE (08:27)
[2020-12-25] MEDS ORDERED: MIDAZOLAM INJ 2MG/2ML VIAL (J2250 PER 1MG) As Ordered ONE (08:28)
[2020-12-25] MEDS ORDERED: HYDROmorphone HCL 2 MG/ML 1ML VIAL As Ordered ONE (08:28)
[2020-12-25] MEDS ORDERED: fentaNYL 100 MCG/2 ML INJECTION (J3010) As Ordered ONE (08:28)
[2020-12-25 08:36] LABS: BLOOD UREA NITROGEN 7 MG/DL (7-18); CARBON DIOXIDE LEVEL 30 MEQ/L (21-32); CHLORIDE LEVEL 107 MEQ/L (98-107); CREATININE FOR GFR 0.75 MG/DL (0.55-1.30); GLOMERULAR FILTRATION RATE > 60.0 (>60); GLUCOSE, FASTING 91 MG/DL (70-100); POTASSIUM SERUM 4.2 MEQ/L (3.5-5.1); SODIUM LEVEL 141 MEQ/L (136-145)
[2020-12-25] MEDS ORDERED: BUPIVACAINE/EPIN 0.25% 30 ML VIAL As Ordered ONE (09:26)
[2020-12-25] MEDS ORDERED: FLUORESCEIN 10% (100MG/ML) 5 ML VIAL As Ordered ONE (09:27)
[2020-12-25] MEDS ORDERED: LR 1,000 ML IV SCH ×2 (11:40)
[2020-12-25] MEDS ORDERED: oxyCODONE 5MG TAB PO PRN (11:40)
[2020-12-25] MEDS ORDERED: ONDANSETRON 4MG/2ML VIAL IV PRN (11:40)
[2020-12-25] MEDS ORDERED: HYDROMORPHONE HCL 0.5 MG/ 0.5 ML SYRINGE (J1170 PER 1) IV PRN (11:40)
[2020-12-25] MEDS ORDERED: PERCOCET 5MG/325MG TAB PO PRN (11:40)
[2020-12-25] MEDS ORDERED: METOCLOPRAMIDE INJ 10MG/2ML VIAL (J2765 PER 1) IV PRN (11:40)
[2020-12-25] MEDS ORDERED: fentaNYL 100 MCG/2 ML INJECTION (J3010) IV PRN (11:40)
[2020-12-25] MEDS ORDERED: SIMETHICONE 80MG CHEW TAB PO SCH (12:00)
--- NOTE | 2020-12-25 13:44 | RO ---
OPERATIVE NOTE DATE OF OPERATION: 12/25/2020 Nettie is a 35-year-old female with an extensive history of abnormal uterine bleeding and enlarged fibroid uterus. After counseling, a decision was made to proceed with a robotic assisted total hysterectomy as well as removal of both tubes and possible cystoscopy. PREOPERATIVE DIAGNOSIS: 1. Excessive menstruation. 2. Enlarged fibroid uterus. POSTOPERATIVE DIAGNOSIS: 1. Excessive menstruation. 2. Enlarged fibroid uterus. PROCEDURE: 1. Robotic-assisted total hysterectomy. 2. Removal of both tubes. 3. Cystoscopy. SURGEON: Sincere Frazier DO CAR WHACKER: DOMINIQUE Krishnan ANESTHESIA: General COMPLICATIONS: None. ESTIMATED BLOOD LOSS: 40 mL. SPECIMENS SENT TO THE LAB: Uterus, cervix and bilateral fallopian tubes. DESCRIPTION OF PROCEDURE: After obtaining informed consent, the patient was taken to the operating room where general anesthetic was found to be adequate. She was then draped and prepped in the usual sterile fashion in a dorsal lithotomy position. At this point, the uterus was found to approximately 11 cm in size. A HUMI II uterine manipulator was placed. A Jackson catheter was placed in the bladder for drainage. We then went to the patient's abdomen where using a Veress needle at the umbilicus, the abdomen was insufflated with CO2 gas to approximately 3.5 liters. An 8 mm supraumbilical incision was made and the trocar was inserted under direct visualization. Two 8 mm left lateral ports were placed followed by robotic arm 1 in the assist port and on the right side, an 8 mm port lateral port placed for robotic arm 2. All these ports were placed under direct visualization. At this point, the patient was placed in the steep Trendelenburg. The robot was brought to the patient's side and docked in the usual fashion. The camera port was docked. After docking the camera port, proper targeting was performed after passing the targeting process. The remaining arms were then docked in the usual fashion. At this point, a vessel sealer was placed in arm 2 and a bipolar grasper in arm 1. I then unscrubbed and went to the surgeon console and began the surgery. At this point, the fallopian tube was identified. The mesosalpinx was transected using the vessel sealer all the way down to the utero-ovarian ligament. The utero-ovarian ligaments were cauterized and cut. This was taken down to include the uterine arteries all the way down to the uterosacral ligament. The anterior leaflet of the broad ligament was dissected to create a bladder flap. The bladder was pushed out of the operative field. The opposite site was done in similar fashion. After completing the entire bladder flap and securing the uterine arteries, the vessel sealer was removed. An Endoshear was placed in. Anterior and posterior colpotomy was performed in the uterus as well as bilateral fallopian tubes were removed through the vagina. At this point, a moistened sponge lap was placed in the vagina to maintain pneumoperitoneum. Then the vaginal cuff was closed using a 2-0 V-Loc suture in a running fashion. 1 mL of fluorescein was given by the anesthesiologist who assisted in the cystoscopy. After closure of the vaginal cuff, I then rescrubbed. I went to the patient's side. Retrograde filled the bladder with 230 mL of normal saline, Jackson catheter removed. A cystoscope was inserted and cystoscopy was performed. Bilateral ureteral jets were noted, no evidence of any bladder injury noted. At this point, the cystoscope was removed and the Jackson catheter placed back in the bladder for drainage. I then went to the patient's abdomen. All the trocars were removed and the trocar sites were closed using 3-0 Vicryl in a subcuticular fashion. 1/4% Marcaine was placed for postoperative pain, Dermabond placed. The patient tolerated the procedure well. She was then transferred to recovery room in stable condition. [facility]
[2020-12-25 15:00] VITALS: BP 140/90
[2020-12-25] MEDS ORDERED: IBUPROFEN 800 MG TAB PO SCH (17:00)
== END 2020-12-25 15:30 | disposition home or self-care (01) ==
LOC: M SDC 07:30
PROVIDERS: ATTEND Obstetrics & Gynecology
DX: N92.0 Excessive and frequent menstruation with regular cycle (principal); N85.2 Hypertrophy of uterus; D25.9 Leiomyoma of uterus, unspecified; N72 Inflammatory disease of cervix uteri; G43.909 Migraine, unspecified, not intractable, without status migrainosus; Z79.899 Other long term (current) drug therapy; Z88.1 Allergy status to other antibiotic agents; Z87.891 Personal history of nicotine dependence
CPT/HCPCS: 36415; 58571; 80048; 81025; 85027; 86850; 86900; 86901; 88307; J0131; J1100; J1170; J1885; J2250; J2405; J3010; S2900

== ENCOUNTER → 2021-07-21 | Outpatient (CLI) | payer BC, OTHER ==
[~2021-07-21] MED LIST changes: -LIDOCAINE 1% MDV 20ML VIAL SQ PRN; -LR 1,000 ML IV ONE; +OXYC1TAB23 PO
[2021-07-21 11:08] LABS: HEMOGLOBIN A1c 5.5 %
[2021-07-21 11:34] LABS: ALBUMIN 3.1 GM/DL (3.2-5.2); ALT/SGPT 28 U/L (12-78); BILIRUBIN,TOTAL 0.5 MG/DL (0.2-1.0); BLOOD UREA NITROGEN 10 MG/DL (7-18); CALCIUM LEVEL 8.3 MG/DL (8.5-10.1); CARBON DIOXIDE LEVEL 28 MEQ/L (21-32); CHLORIDE LEVEL 106 MEQ/L (98-107); CHOLESTEROL LEVEL 246 MG/DL (<200); CREATININE FOR GFR 0.71 MG/DL (0.55-1.30); GLOMERULAR FILTRATION RATE > 60.0 (>60); GLUCOSE, FASTING 96 MG/DL (70-100); HDL CHOLESTEROL 52 MG/DL (>40); LDL CHOLESTEROL 163 MG/DL (<100); NON-HDL-C 194 MG/DL; SODIUM LEVEL 139 MEQ/L (136-145); TOTAL PROTEIN 6.6 GM/DL (6.4-8.2); TRIGLYCERIDES LEVEL 156 MG/DL (<150)
[2021-07-21 15:22] LABS: BASO # 0.1 10^3/uL (0.0-0.2); BASO % 0.8 % (0.0-1.0); EOS # 0.1 10^3/uL (0.0-0.5); EOS % 1.3 % (0.0-3.0); HEMATOCRIT 41.1 % (36.0-47.0); HEMOGLOBIN 13.4 g/dl (12.0-15.5); LYMPH # 1.5 10^3/uL (1.5-5.0); LYMPH % 20.7 % (24.0-44.0); MEAN CORPUSCULAR HEMOGLOBIN 29.9 pg (27.0-33.0); MEAN CORPUSCULAR HGB CONC 32.6 g/dl (32.0-36.5); MEAN CORPUSCULAR VOLUME 91.7 fl (80.0-96.0); MONO # 0.5 10^3/uL (0.0-0.8); MONO % 6.6 % (2.0-8.0); NEUTROPHILS % 70.2 % (36.0-66.0); PLATELET COUNT, AUTOMATED 211 10^3/uL (150-450); RED BLOOD COUNT 4.48 10^6/uL (4.00-5.40); WHITE BLOOD COUNT 7.1 10^3/uL (4.0-10.0)
== END ==
LOC: M WUC 08:43
PROVIDERS: ATTEND Physician Assistant
DX: I10 Essential (primary) hypertension (principal)

== ENCOUNTER 2023-01-14 22:15 | Emergency (ER) | payer BC, OTHER ==
[~2023-01-14] VITALS: Ht 172.7 cm; Wt 107.4 kg
[2023-01-14] MEDS ORDERED: HYDR12CA (22:26)
[2023-01-15 00:18] LABS: BASO # 0.1 10^3/uL (0.0-0.2); BASO % 0.7 % (0.0-1.0); EOS # 0.1 10^3/uL (0.0-0.5); HEMOGLOBIN 13.9 g/dl (12.0-15.5); LYMPH # 1.6 10^3/uL (1.5-5.0); LYMPH % 18.3 % (24.0-44.0); MEAN CORPUSCULAR HEMOGLOBIN 30.8 pg (27.0-33.0); MEAN CORPUSCULAR HGB CONC 33.9 g/dl (32.0-36.5); MEAN CORPUSCULAR VOLUME 90.9 fl (80.0-96.0); MONO # 0.4 10^3/uL (0.0-0.8); MONO % 4.9 % (2.0-8.0); NEUTROPHILS # 6.7 10^3/uL (1.5-8.5); NEUTROPHILS % 74.8 % (36.0-66.0); PLATELET COUNT, AUTOMATED 225 10^3/uL (150-450); RED BLOOD COUNT 4.51 10^6/uL (4.00-5.40)
[2023-01-15] MEDS ORDERED: NS 1,000 ML IV ONE (00:30)
[2023-01-15] MEDS ORDERED: KETOROLAC 30 MG/ML 1ML VIAL IV ONE (00:30)
[2023-01-15 01:02] LABS: FREE T4 1.04 NG/DL (0.89-1.76); THYROID STIMULATING HORMONE 1.641 uIU/ML (0.55-4.78)
[2023-01-15 01:05] LABS: BLOOD UREA NITROGEN 11 MG/DL (9-23); CALCIUM LEVEL 8.5 MG/DL (8.5-10.1); CARBON DIOXIDE LEVEL 30 MMOL/L (20-31); CHLORIDE LEVEL 103 MMOL/L (98-107); CK-MB VALUE MASS < 1.0 NG/ML (<3.6); CPK CREATINE PHOSPHOKINASE 99 U/L (34-145); CREATININE FOR GFR 0.56 MG/DL (0.55-1.30); GLOMERULAR FILTRATION RATE > 60.0 (>60); GLUCOSE, FASTING 126 MG/DL (60-100); MB/CK RELATIVE INDEX 1.01 (< OR =4); POTASSIUM SERUM 4.3 MMOL/L (3.5-5.1); SODIUM LEVEL 140 MMOL/L (136-145)
[2023-01-15 01:11] LABS: HCG, SERUM QUALITATIVE NEGATIVE (NEGATIVE)
[2023-01-15] MEDS ORDERED: ISOVUE-370 76% 100ML VIAL As Ordered ONE (01:15)
[2023-01-15 01:28] LABS: CK-MB VALUE MASS < 1.0 NG/ML (<3.6)
[2023-01-15 01:31] LABS: CPK CREATINE PHOSPHOKINASE 85 U/L (34-145); MB/CK RELATIVE INDEX 1.17 (< OR =4)
[2023-01-15] MEDS ORDERED: NAPR-837 PO (02:35)
[2023-01-15 02:58] VITALS: BP 129/77; TEMP 98; O2SAT 99
== END 2023-01-15 03:09 | disposition home or self-care (01) ==
LOC: M ED 22:15
DX: R07.89 Other chest pain (principal); I10 Essential (primary) hypertension; Z88.1 Allergy status to other antibiotic agents
CPT/HCPCS: 71045; 71275; 80048; 82550; 82553; 84439; 84443; 84484; 84703; 85025; 93005; 93041; 94760; 99284; J1885; Q9967

== ENCOUNTER → 2023-11-04 | Outpatient (CLI) | payer BC, OTHER ==
[~2023-11-04] MED LIST changes: +HYDR12CA; +NAPR-837 PO
[2023-11-04 09:47] LABS: BASO # 0.1 10^3/uL (0.0-0.2); BASO % 0.9 % (0.0-1.0); EOS # 0.1 10^3/uL (0.0-0.5); HEMATOCRIT 43.6 % (36.0-47.0); HEMOGLOBIN 14.6 g/dl (12.0-15.5); LYMPH # 1.8 10^3/uL (1.5-5.0); LYMPH % 32.8 % (24.0-44.0); MEAN CORPUSCULAR HEMOGLOBIN 30.6 pg (27.0-33.0); MEAN CORPUSCULAR HGB CONC 33.5 g/dl (32.0-36.5); MEAN CORPUSCULAR VOLUME 91.4 fl (80.0-96.0); MONO # 0.4 10^3/uL (0.0-0.8); NEUTROPHILS # 3.1 10^3/uL (1.5-8.5); NEUTROPHILS % 56.1 % (36.0-66.0); PLATELET COUNT, AUTOMATED 275 10^3/uL (150-450); RED BLOOD COUNT 4.77 10^6/uL (4.00-5.40); WHITE BLOOD COUNT 5.5 10^3/uL (4.0-10.0)
[2023-11-04 09:55] LABS: ALBUMIN 3.5 G/DL (3.2-5.2); ALKALINE PHOSPHATASE 67 U/L (46-116); ALT/SGPT 69 U/L (7.0-40); AST/SGOT 42 U/L (<34); BILIRUBIN,TOTAL 0.6 MG/DL (0.3-1.2); BLOOD UREA NITROGEN 9 MG/DL (9-23); CALCIUM LEVEL 9.9 MG/DL (8.5-10.1); CARBON DIOXIDE LEVEL 37 MMOL/L (20-31); CHLORIDE LEVEL 103 MMOL/L (98-107); CHOLESTEROL LEVEL 268 MG/DL (<200); CHOLESTEROL RISK RATIO 6.29 (<5); CREATININE FOR GFR 0.79 MG/DL (0.55-1.30); GLOMERULAR FILTRATION RATE > 60.0 (>60); GLUCOSE, FASTING 100 MG/DL (60-100); HDL CHOLESTEROL 42.6 MG/DL (>40); LDL CHOLESTEROL 186.8 MG/DL (<100); NON-HDL-C 225.4 MG/DL; POTASSIUM SERUM 3.2 MMOL/L (3.5-5.1); SODIUM LEVEL 142 MMOL/L (136-145); TOTAL PROTEIN 7.2 G/DL (5.7-8.2); TRIGLYCERIDES LEVEL 193 MG/DL (<150)
[2023-11-04 09:59] LABS: FREE T4 1.45 NG/DL (0.89-1.76); HEMOGLOBIN A1c 5.5 % (4.0-6.0); THYROID STIMULATING HORMONE 0.991 uIU/ML (0.55-4.78)
== END ==
LOC: M WUC 08:05
PROVIDERS: ATTEND Physician Assistant
DX: I10 Essential (primary) hypertension (principal); E78.00 Pure hypercholesterolemia, unspecified

== ENCOUNTER → 2024-02-07 | Outpatient (CLI) | payer BC ==
[2024-02-07 10:32] LABS: ALBUMIN 3.9 G/DL (3.2-5.2); ALKALINE PHOSPHATASE 72 U/L (35-104); ALT/SGPT 55 U/L (7.0-40); AST/SGOT 39 U/L (<34); BILIRUBIN,TOTAL 0.7 MG/DL (0.3-1.2); BLOOD UREA NITROGEN 7 MG/DL (9-23); CALCIUM LEVEL 10.1 MG/DL (8.5-10.1); CARBON DIOXIDE LEVEL 31 MMOL/L (20-31); CHLORIDE LEVEL 102 MMOL/L (98-107); CHOLESTEROL LEVEL 160 MG/DL (<200); CREATININE FOR GFR 0.72 MG/DL (0.55-1.30); GLOMERULAR FILTRATION RATE > 60.0 (>60); GLUCOSE, FASTING 88 MG/DL (60-100); HDL CHOLESTEROL 48.4 MG/DL (>40); NON-HDL-C 111.6 MG/DL; POTASSIUM SERUM 3.8 MMOL/L (3.5-5.1); SODIUM LEVEL 140 MMOL/L (136-145); TOTAL PROTEIN 8.1 G/DL (5.7-8.2); TRIGLYCERIDES LEVEL 98 MG/DL (<150)
== END ==
LOC: M LAB 08:40
PROVIDERS: ATTEND Physician Assistant
DX: E78.00 Pure hypercholesterolemia, unspecified (principal)